=== PATIENT | female | born 1970 | race Caucasian/White ===

== ENCOUNTER 2016-06-24 12:35 | Emergency (ER) | payer OTHER ==
[~2016-06-24] VITALS: Ht 157.5 cm; Wt 71.7 kg
--- NOTE | 2016-06-24 12:38 | PHYS DOC ---
Adult General Chief Complaint Chief Complaint: LACERATION/AVULSION [facility] HPI Patient is a 46 year old female who presents with should to her right wrist. She was lifting a ceramic flowerpot when the pot fell and broke and she sustained a laceration to her right wrist. Last tetanus shot was in 2012. She denies any weakness or numbness in her hand or wrist. She is left- hand dominant. Review of Systems Review of Systems Constitutional: Denies fever or chills [] Eyes: Denies change in visual acuity, redness, or eye pain [] HENT: Denies nasal congestion or sore throat [] Respiratory: Denies cough or shortness of breath [] Cardiovascular: No additional information not addressed in HPI [] GI: Denies abdominal pain, nausea, vomiting, bloody stools or diarrhea [] : Denies dysuria or hematuria [] Musculoskeletal: Denies back pain or joint pain [] Integument: Denies rash or skin lesions, positive for laceration to right wrist Neurologic: Denies headache, focal weakness or sensory changes [] Endocrine: Denies polyuria or polydipsia [] Current Medications Current Medications Current Medications Medications (Trade) Dose Ordered Sig/Lisa Start Time Stop Time Status Last Admin Dose Admin Lidocaine/Sodium Bicarbonate (Buffered Lidocaine 1%) 20 ml 1X ONCE 06/24/16 13:15 06/24/16 13:16 DC 06/24/16 13:41 20 ML Allergies Allergies Allergies Coded Allergies Type Severity Reaction Last Updated Verified No Known Drug Allergies 06/24/16 No Physical Exam Physical Exam Constitutional: Well developed, well nourished, no acute distress, non-toxic appearance. [] HENT: Normocephalic, atraumatic, bilateral external ears normal, oropharynx moist, no oral exudates, nose normal. [] Eyes: PERRLA, EOMI, conjunctiva normal, no discharge. [] Neck: Normal range of motion, no tenderness, supple, no stridor. [] Cardiovascular:Heart rate regular rhythm, no murmur [] Lungs & Thorax: Bilateral breath sounds clear to auscultation [] Abdomen: Bowel sounds normal, soft, no tenderness, no masses, no pulsatile masses. [] Skin: Warm, dry, no erythema, no rash. 5.5 cm laceration to left medial wrist Back: No tenderness, no CVA tenderness. [] Extremities: No tenderness, no cyanosis, no clubbing, ROM intact, no edema. Sensation intact to light touch to median radial ulnar nerve distributions, able to flex extend PIP and DIP and MCP, at the wrist and abduct at that at the wrist of the right hand. Neurologic: Alert and oriented X 3, normal motor function, normal sensory function, no focal deficits noted. [] Psychologic: Affect normal, judgement normal, mood normal. [] Current Patient Data Vital Signs Vital Signs Date Time Temp Pulse Resp B/P (MAP) Pulse Ox O2 Delivery O2 Flow Rate FiO2 06/24/16 12:45 97.9 113 18 96 Room Air 97.9 EKG EKG [] Radiology/Procedures Radiology/Procedures [facility] [address] [place] [address] IMAGING REPORT Signed PATIENT: MICHAELA MUNOZ ACCOUNT: [id number] : 1970 LOCATION: ER AGE: 46 SEX: F EXAM STATUS: REG ER ORD. PHYSICIAN: OSVALDO VILLARREAL MD REASON: laceration PROCEDURE: WRIST 3V RIGHT Indication injury, pain. AP oblique and lateral views of the right wrist were obtained. A soft tissue injury on the ulnar side of the wrist is noted. A bony abnormality is not seen DICTATED and SIGNED BY: BETH PARK MD DATE: 06/24/16 1319 CC: OSVALDO VILLARREAL MD; NON,STAFF ~ Course & Med Decision Making Course & Med Decision Making Pertinent Labs and Imaging studies reviewed. (See chart for details) Right medial wrist laceration was 5.5; is in length. There it was none and explored for any foreign bodies and tendon/ligament lacerations none were noted. She was vascularly intact prior to anesthesia and had complete range of extension flexion abduction and abduction of her wrist and fingers. The wound was closed with 14 simple interrupted sutures. The patient being discharged with tramadol and Augmentin. She is to follow-up with Dr. Oakes. She is instructed to return back to ER if she has any fevers, redness, numbness, weakness. She specifically instructed that she could have a tendon laceration or nerve damage that we cannot see today. Her and her 's agreeable Plan B discharged in stable condition this time. Dragon Disclaimer Dragon Disclaimer This electronic medical record was generated, in whole or in part, using a voice recognition dictation system. Laceration Repair Lac Repair Indication: Right medial wrist laceration Procedure: The patient was placed in the appropriate position and anesthesia around the 1% buffered lidocaine 3 mL. The area was then alcohol and sterile water. The laceration was closed with 14 simple interrupted 4-0 nylon sutures, the wound area was then dressed with sterile dressing. Total repaired wound length: 5.5 cm. The patient tolerated the procedure well. Complications: No complications noted. Departure Departure Impression: Primary Impression: Wrist laceration Disposition: HOME, SELF-CARE Condition: STABLE Referrals: ROSEANN OAKES MD Patient Instructions: Laceration Care, Adult Additional Instructions: Your x-rays do not show anything broken on your wrist or any foreign bodies. You received 14 stitches that will need to be removed in 9-10 days from now. You can return back to the ER to have these removed. He only taking antibiotics for the next 7 days. He developed fevers, redness, swelling or other concerns please return back to emergency department for further evaluation. We are not sure if any nerves or tendons were damaged. If you have pain in your wrist/arm, numbness weakness, or cant move your fingers or wrist correctly, please follow- up with Dr. Oakes. Please call his office and schedule an appointment. You can take tramadol for pain as needed or you can use Tylenol. Please follow the instructions on the bottle. Scripts Tramadol Hcl (TRAMADOL HCL) 50 Mg Tablet 1 TAB PO PRN Q6HRS Y for PAIN, #15 TAB Prov: OSVALDO VILLARREAL MD 06/24/16 Amoxicillin/Potassium Clav (AUGMENTIN 875-125 TABLET) 1 Each Tablet 1 TAB PO BID, #14 TAB Prov: OSVALDO VILLARREAL MD 06/24/16 Problem Qualifiers Primary Impression: Wrist laceration Encounter type: initial encounter OSVALDO VILLARREAL MD June 24, 2016 12:38
[2016-06-24 12:45] VITALS: BP 175/93
[2016-06-24] MEDS ORDERED: LIDOCAINE 1% / SOD BICARB 8.4% 20 ML VIAL. IJ ONE (13:15)
--- NOTE | 2016-06-24 13:23 | RAD ---
Indication injury, pain. AP oblique and lateral views of the right wrist were obtained. A soft tissue injury on the ulnar side of the wrist is noted. A bony abnormality is not seen
[2016-06-24] MEDS ORDERED: TRAM50TA PO (14:21)
[2016-06-24] MEDS ORDERED: AMOX1TAB61 PO (14:21)
== END 2016-06-24 14:33 | disposition home or self-care (01) ==
LOC: ER 12:35
DX: S61.511A Laceration without foreign body of right wrist, initial encounter (principal); W20.8XXA Other cause of strike by thrown, projected or falling object, initial encounter; Y93.89 Activity, other specified; Y92.89 Other specified places as the place of occurrence of the external cause; Y99.8 Other external cause status
CPT/HCPCS: 12002; 73110; 99284-25

== ENCOUNTER → 2017-03-19 | Outpatient (CLI) | payer OTHER | END | disposition home or self-care (01) | LOC: KCIC US 07:50 | DX: Z12.31 Encounter for screening mammogram for malignant neoplasm of breast (principal); N83.01 Follicular cyst of right ovary | CPT/HCPCS: 76830; 76856; 77063; 77067 ==

== ENCOUNTER → 2019-03-30 | Outpatient (CLI) | payer OTHER ==
[~2019-03-30] MED LIST: AMOX1TAB61 PO; TRAM50TA PO
--- NOTE | 2019-03-30 15:52 | KCIC ---
Bilateral digital screening mammograms: Reason for examination: Routine screening. Comparison is made to previous studies dated back to 06/19/2013. Interpretation was made with the benefit of CAD. The skin and nipples show no abnormalities. No abnormal axillary lymph nodes are seen. The breast parenchyma shows scattered fibroglandular density. (Breast density: Category B.) There are small nodules consistent with intramammary lymph nodes. There are no new dominant masses, suspicious calcifications or architectural distortions. Impression: No evidence of malignancy. Recommend routine screening. BI-RADS Category 2: Benign. "Our facility is accredited by the [employer] Mammography [employer]." This patient's information has been entered into a reminder system for the patient to be notified with the results of her examination and a target date for the next mammogram. Electronically signed by: Rajani Goldstein MD (03/30/2019 3:14 PM) [email or web address]
== END | disposition home or self-care (01) ==
LOC: KCIC MAMMO 11:50
PROVIDERS: ATTEND Obstetrics & Gynecology
DX: Z12.31 Encounter for screening mammogram for malignant neoplasm of breast (principal)
CPT/HCPCS: 77067

== ENCOUNTER → 2021-05-30 | Outpatient (CLI) | payer OTHER ==
--- NOTE | 2021-05-30 11:51 | KCIC ---
Bilateral digital screening mammograms: Reason for examination: Routine screening. Comparison is made to previous studies dated back to 06/19/2013. CAD was not available for interpretation of this exam. The skin and nipples show no abnormalities. No abnormal axillary lymph nodes are seen. The breast par enchyma shows scattered fibroglandular density. (Breast density: Category B.) There are no dominant m asses, suspicious calcifications or architectural distortions. Impression: No evidence of malignancy. Recommend routine screening. BI-RADS Category 1: Negative. "Our facility is accredited by the [employer] Mammography [employer]." This patient's information has been entered into a reminder system for the patient to be notified wit h the results of her examination and a target date for the next mammogram. Electronically signed by: Rajani Goldstein MD (05/30/2021 11:49 AM) [email or web address]
== END ==
LOC: KCIC MAMMO 10:37
PROVIDERS: ATTEND Obstetrics & Gynecology
DX: Z12.31 Encounter for screening mammogram for malignant neoplasm of breast (principal)
CPT/HCPCS: 77067